=== PATIENT | female | born 1955 | race Caucasian/White ===

== ENCOUNTER → 2018-02-22 | Outpatient (CLI) | payer OTHER | LOC: M WHC 14:52 | DX: Z12.31 Encounter for screening mammogram for malignant neoplasm of breast (principal) ==

== ENCOUNTER → 2019-02-24 | Outpatient (CLI) | payer OTHER ==
--- NOTE | 2019-02-24 15:54 | REPMRS ---
Patient History The patient states she had a clinical breast exam in 02/2019. No known family history of cancer. Took estrogen for 6 years. Digital Woman Screen Mammo: February 24, 2019 - Exam #: [id number] Bilateral CC and MLO view(s) were taken. Technologist: Deanna Khan, Technologist Prior study comparison: February 22, 2018, bilateral digital woman screen mammo performed at [facility]. February 21, 2017, digital woman screen mammo performed at [facility]. February 21, 2016, digital woman screen mammo performed at [facility]. FINDINGS: There are scattered fibroglandular densities. There has been no change in the appearance of the mammogram from the prior studies. There is a mild amount of scattered fibroglandular density which is fairly symmetric. There is no interval development of dominant mass, architectural distortion, or grouped microcalcification suggestive of malignancy. 3-D tomosynthesis shows no additional findings. Assessment: BI-RADS/ACR category 1 mammogram. Negative Mammogram. Recommendation Routine screening mammogram of both breasts in 1 year (for women over age 40). This patient's Lifetime Breast Cancer Risk is estimated at 6.1 %. This mammogram was interpreted with the aid of an FDA-approved computer-aided dectection system. Electronically Signed By: German Cuellar MD 02/24/19 [id number]
== END ==
LOC: M WHC 14:35
PROVIDERS: ATTEND Nurse Practitioner Family
DX: Z12.31 Encounter for screening mammogram for malignant neoplasm of breast (principal)

== ENCOUNTER → 2020-03-25 | Outpatient (CLI) | payer OTHER ==
--- NOTE | 2020-03-25 11:51 | REPMRS ---
Patient History The patient states she had a clinical breast exam in 2019. No known family history of cancer. Took estrogen for 6 years. Digital Woman Screen Mammo: March 25, 2020 - Exam #: [id number] Bilateral CC and MLO view(s) were taken. Technologist: Monse Hawthorne, Technologist Prior study comparison: February 24, 2019, bilateral digital woman screen mammo performed at [facility]. February 22, 2018, bilateral digital woman screen mammo performed at [facility]. February 21, 2017, digital woman screen mammo performed at [facility]. FINDINGS: There are scattered fibroglandular densities. The Volpara volumetric breast density category is:B. There has been no change in the appearance of the mammogram from the prior studies. There is a mild amount of scattered fibroglandular density which is fairly symmetric. There is no interval development of dominant mass, architectural distortion, or grouped microcalcification suggestive of malignancy. 3-D tomosynthesis shows no additional findings. Assessment: BI-RADS/ACR category 1 mammogram. Negative Mammogram. Recommendation Routine screening mammogram of both breasts in 1 year (for women over age 40). This patient's [facility] Lifetime Breast Cancer Risk is estimated at 5.9 %. This mammogram was interpreted with the aid of an FDA-approved computer-aided dectection system. Electronically Signed By: German Cuellar MD 03/25/20 [id number]
== END ==
LOC: M WHC 09:25
PROVIDERS: ATTEND Nurse Practitioner Family
DX: Z12.31 Encounter for screening mammogram for malignant neoplasm of breast (principal)

== ENCOUNTER → 2021-04-07 | Outpatient (CLI) | payer OTHER ==
--- NOTE | 2021-04-07 12:02 | REPMRS ---
Patient History The patient states she had a clinical breast exam in 2020. No known family history of cancer. Took estrogen for 6 years. No breast complaints today Patient signed the MRS sheet 1st vaccine 07/02/2076-[id number] arm 2nd vaccine 07/23/20-left arm 3rd vaccine 03/10/21-right arm Priors on PACS Patient Identification Verified Digital Woman Screen Mammo: April 07, 2021 - Exam #: [id number] Bilateral CC and MLO view(s) were taken. Technologist: Monse Hawthorne, Technologist Prior study comparison: March 25, 2020, bilateral digital woman screen mammo performed at [facility]. February 24, 2019, bilateral digital woman screen mammo performed at [facility]. FINDINGS: There are scattered fibroglandular densities. Screening. Digital screening (2D) mammography was performed bilaterally in the CC and MLO projections. Additionally, breast tomosynthesis (3D mammography) was performed bilaterally in the CC and MLO projections. Todays exam was compared to the prior exam/exams. By history, the patient has no complaints of a palpable breast abnormality or other significant breast complaints. The breasts are unchanged in size and shape. There are no kaylynn-soft tissue densities or spiculated masses. There is no internal architectural distortion. Once again, stable benign appearing calcifications are seen.There are no suspicious kaylynn-calcific clusters. Skin thickening or nipple retraction is not present. IMPRESSION: BI-RADS Category 2- Benign Findings. There is no evidence of malignant alteration of the breasts. Followup examination recommended in one year. The Volpara volumetric breast density category is B, there are scattered areas of fibroglandular densities. This mammogram was read [facility],an FDA approved computer aided detection system for mammography. The lifetime Tyrer-Cuzick score is 5.6 % Negative x-ray reports should not delay surgical consultation if a dominant or clinically suspicious mass is present. Not all breast cancers can be identified by mammography. Therefore, we recommend that you continue to perform regular breast self-examination and physical examination and then promptly contact your physician of any concerns or changes. Adenosis and dense breasts may obscure an underlying neoplasm. Assessment: BI-RADS/ACR category 2 mammogram. Benign Findings. Recommendation Routine screening mammogram of both breasts in 1 year. Electronically Signed By: Donald Segovia DO 04/07/21 [id number]
== END ==
LOC: M WHC 10:48
PROVIDERS: ATTEND Nurse Practitioner Women's Health
DX: Z12.31 Encounter for screening mammogram for malignant neoplasm of breast (principal)

== ENCOUNTER → 2022-10-18 | Outpatient (CLI) | payer OTHER | LOC: M WHC 10:30 | PROVIDERS: ATTEND Advanced Practice Midwife | DX: Z12.31 Encounter for screening mammogram for malignant neoplasm of breast (principal) ==

== ENCOUNTER → 2023-05-31 | Outpatient (CLI) | payer OTHER, MEDICARE | LOC: M WHC 10:22 | PROVIDERS: ATTEND Nurse Practitioner Family | DX: N95.1 Menopausal and female climacteric states (principal); M85.89 Other specified disorders of bone density and structure, multiple sites ==

== ENCOUNTER → 2023-11-08 | Outpatient (CLI) | payer MEDICARE, OTHER | LOC: M WHC 13:11 | PROVIDERS: ATTEND Advanced Practice Midwife | DX: Z01.419 Encounter for gynecological examination (general) (routine) without abnormal findings (principal); Z12.31 Encounter for screening mammogram for malignant neoplasm of breast; R92.323 Mammographic fibroglandular density, bilateral breasts; Z12.39 Encounter for other screening for malignant neoplasm of breast; Z90.710 Acquired absence of both cervix and uterus; Z80.1 Family history of malignant neoplasm of trachea, bronchus and lung; Z80.51 Family history of malignant neoplasm of kidney | CPT/HCPCS: 77063; 77067; G0101 ==

== ENCOUNTER → 2025-01-20 | Outpatient (CLI) | payer MEDICARE, OTHER | LOC: M WHC 08:28 | PROVIDERS: ATTEND Advanced Practice Midwife | DX: Z12.31 Encounter for screening mammogram for malignant neoplasm of breast (principal) ==